=== PATIENT | female | born 1975 ===

== ENCOUNTER 2016-08-10 09:53 | Emergency (ER) | payer BC ==
[~2016-08-10] VITALS: Ht 154.9 cm; Wt 72.0 kg
[~2016-08-10 09:53] MED LIST: ATARAX,VISTARIL25 MG PO; BENADRYL25 MG PO; PREDNISONE20 MG PO; PRENATAL TABLE1 EACH PO
[2016-08-10 11:32] LABS: HEMATOCRIT 34.9 % (36.0-46.0); MCH 26.5 PG (29.0-34.0); MCV 80.4 FL (83-99); PLATELET COUNT 187 K/uL (156-360); RBC DIS.WIDTH-CV 14.2 % (11.8-14.6); RBC DIS.WIDTH-SD 39.8 % (39-53); RED BLOOD COUNT 4.34 M/uL (3.80-5.20); WHITE BLOOD COUNT 6.2 K/uL (4.1-10.2)
[2016-08-10 11:45] LABS: CHLORIDE 106 mEq/L (99-109)
[2016-08-10 11:46] LABS: POTASSIUM 3.8 mEq/L (3.7-5.4); SODIUM 137 mEq/L (136-147)
[2016-08-10 11:47] LABS: GLUCOSE 92 mg/dL (70-99)
[2016-08-10 11:49] LABS: ANION GAP 9 MEQ/L (2-14)
[2016-08-10 11:51] LABS: GFR ESTIMATE (CALCULATED) > 59 mL/min/
[2016-08-10 11:52] LABS: UREA NITROGEN (BUN) 7 mg/dL (9-23)
[2016-08-10 12:00] LABS: TROP-I INTERPRETATION NEGATIVE; TROPONIN-I < 0.01 ng/mL (0.0-0.30)
[2016-08-10] MEDS ORDERED: ASPIRIN81 M2 PO (13:38)
[2016-08-10] MEDS ORDERED: ENOXAPARIN40 MG/0.4 SC (13:38)
[2016-08-10 14:13] LABS: ADD MIUA? YES; BILIRUBIN NEGATIVE; BLOOD NEGATIVE; GLUCOSE (STRIP) NEGATIVE; KETONES NEGATIVE; LEUKOCYTES SMALL; NITRITE NEGATIVE; PROTEIN (STRIP) NEGATIVE; SPECIFIC GRAVITY 1.008 (1.000-1.030); UROBILINOGEN 0.2 MG/DL (0.2-1.0)
[2016-08-10 14:19] LABS: COLOR LT YELLOW ((YELLOW))
[2016-08-10 15:26] LABS: BACTERIA 2+ /HPF; EPITHELIAL CELLS RARE /HPF; MUCUS TRACE /LPF; RED BLOOD CELLS 0-5 /HPF (0-5); UCUL ADDED? NO; UNCLASSIFIED CRYSTALS 2+ /HPF; WHITE BLOOD CELLS 0-5 /HPF (0-5)
[2016-08-10 16:32] VITALS: BP 107/59
== END 2016-08-10 16:33 | disposition home or self-care (01) ==
LOC: EXP 09:53 → EME 09:53 → EXP 16:33
PROVIDERS: Nurse Practitioner Family
DX: O99.89 Other specified diseases and conditions complicating pregnancy, childbirth and the puerperium (principal); R00.2 Palpitations; R55 Syncope and collapse; F43.9 Reaction to severe stress, unspecified; Z3A.30 30 weeks gestation of pregnancy
CPT/HCPCS: 80048; 81003; 84484; 85027; 93005; 99281; 99284; J7030

== ENCOUNTER 2016-09-25 23:30 | Outpatient (CLI) | payer BC ==
[~2016-09-25] VITALS: Ht 154.9 cm; Wt 74.8 kg
[~2016-09-25 23:30] MED LIST changes: +ASPIRIN81 M2 PO; +ENOXAPARIN40 MG/0.4 SC
[2016-09-25 23:41] VITALS: BP 113/62
[2016-09-26 00:58] VITALS: BP 114/53
[2016-09-26 02:06] LABS: ADD MIUA? YES; BILIRUBIN NEGATIVE; BLOOD MODERATE; COLOR YELLOW ((YELLOW)); GLUCOSE (STRIP) NEGATIVE; KETONES NEGATIVE; LEUKOCYTES NEGATIVE; NITRITE NEGATIVE; PROTEIN (STRIP) NEGATIVE; UROBILINOGEN 0.2 MG/DL (0.2-1.0)
[2016-09-26 02:26] LABS: BACTERIA NONE SEEN /HPF; EPITHELIAL CELLS NONE SEEN /HPF; HYALINE CASTS 0-5 /LPF; MUCUS TRACE /LPF; RED BLOOD CELLS 0-5 /HPF (0-5); UCUL ADDED? NO; WHITE BLOOD CELLS 0-5 /HPF (0-5)
[2016-09-26 05:37] VITALS: BP 94/52
== END 2016-09-26 06:10 | disposition home or self-care (01) ==
LOC: LDRP-OP 23:30 → 2WEST 23:31
PROVIDERS: Advanced Practice Midwife
DX: O26.893 Other specified pregnancy related conditions, third trimester (principal); Z3A.35 35 weeks gestation of pregnancy; O99.113 Other diseases of the blood and blood-forming organs and certain disorders involving the immune mechanism complicating pregnancy, third trimester; D68.59 Other primary thrombophilia; O40.3XX0 Polyhydramnios, third trimester, not applicable or unspecified; O09.523 Supervision of elderly multigravida, third trimester
CPT/HCPCS: 59025; 81003; G0378; Q0177

== ENCOUNTER 2016-09-26 19:11 | Inpatient (IN) | payer BC ==
[~2016-09-26] VITALS: Ht 154.9 cm; Wt 73.0 kg
[2016-09-26] VITALS (17 sets, daily range): BP systolic 106–133; BP diastolic 58–88
[2016-09-26 19:40] LABS: EOSINOPHIL (%) 0.8 % (0-5); EOSINOPHIL COUNT 0.1 K/uL (0-0.3); HEMATOCRIT 31.1 % (36.0-46.0); IMMATURE GRANULOCYTE (%) 1.8 % (0.0-0.7); IMMATURE GRANULOCYTE COUNT 0.1 K/uL; LYMPHOCYTE COUNT 1.9 K/uL (1.0-2.8); MCH 25.1 PG (29.0-34.0); MCHC 31.8 G/DL (30.0-36.0); MCV 78.7 FL (83-99); MEAN PLAT.VOLUME 10.8 uM^3 (9.5-12.4); MONOCYTE (%) 9.2 % (3-12); MONOCYTE COUNT 0.7 K/uL (0-0.8); NEUTROPHIL (%) 63.4 % (45-76); NRBC (%) 0.3 /100 WBC (0-0); PLATELET COUNT 179 K/uL (156-360); RBC DIS.WIDTH-CV 14.8 % (11.8-14.6); RBC DIS.WIDTH-SD 42.5 % (39-53); RED BLOOD COUNT 3.95 M/uL (3.80-5.20); WHITE BLOOD COUNT 7.8 K/uL (4.1-10.2)
[2016-09-27] VITALS (11 sets, daily range): BP systolic 85–110; BP diastolic 49–67
[2016-09-27 07:41] LABS: FIBRINOGEN 410 MG/DL (160-450); PTT 25.2 (25-32)
[2016-09-27 08:16] LABS: EOSINOPHIL (%) 0 % (0-5); HEMATOCRIT 23.7 % (36.0-46.0); IMMATURE GRANULOCYTE (%) 0.9 % (0.0-0.7); IMMATURE GRANULOCYTE COUNT 0.1 K/uL; INSTRUMENT ABS NEUTROPHIL CT 8.7 K/uL; LYMPHOCYTE COUNT 1.3 K/uL (1.0-2.8); MCH 24.7 PG (29.0-34.0); MCHC 31.2 G/DL (30.0-36.0); MCV 79.3 FL (83-99); MEAN PLAT.VOLUME 11.1 uM^3 (9.5-12.4); MONOCYTE (%) 9.4 % (3-12); MONOCYTE COUNT 1.1 K/uL (0-0.8); NEUTROPHIL (%) 77.8 % (45-76); NEUTROPHIL COUNT 8.7 K/uL (1.8-6.4); PLATELET COUNT 187 K/uL (156-360); RBC DIS.WIDTH-CV 14.8 % (11.8-14.6); RBC DIS.WIDTH-SD 42.8 % (39-53)
[2016-09-27 08:24] LABS: RED BLOOD COUNT 2.99 M/uL (3.80-5.20); WHITE BLOOD COUNT 11.2 K/uL (4.1-10.2)
[2016-09-28] VITALS (16 sets, daily range): BP systolic 93–113; BP diastolic 52–62
[2016-09-28 07:37] LABS: EOSINOPHIL (%) 0.6 % (0-5); IMMATURE GRANULOCYTE COUNT 0.1 K/uL; INSTRUMENT ABS NEUTROPHIL CT 5.5 K/uL; MONOCYTE (%) 8.4 % (3-12); MONOCYTE COUNT 0.6 K/uL (0-0.8); NEUTROPHIL (%) 76.6 % (45-76); NEUTROPHIL COUNT 5.5 K/uL (1.8-6.4); NRBC (%) 0.3 /100 WBC (0-0)
[2016-09-28 07:46] LABS: HEMATOCRIT 18.7 % (36.0-46.0); MCH 24.6 PG (29.0-34.0); MCHC 30.5 G/DL (30.0-36.0); MCV 80.6 FL (83-99); MEAN PLAT.VOLUME 10.2 uM^3 (9.5-12.4); PLAT.SUFFICIENCY DECREASED; PLATELET COUNT 124 K/uL (156-360); RBC DIS.WIDTH-CV 15.2 % (11.8-14.6); RBC DIS.WIDTH-SD 44.1 % (39-53); RED BLOOD COUNT 2.32 M/uL (3.80-5.20); WHITE BLOOD COUNT 7.2 K/uL (4.1-10.2)
[2016-09-28 18:29] LABS: HEMATOCRIT 26.9 % (36.0-46.0); MCV 82.5 FL (83-99)
[2016-09-29] VITALS (8 sets, daily range): BP systolic 102–128; BP diastolic 51–72
[2016-09-29 18:18] LABS: EOSINOPHIL (%) 1.1 % (0-5); EOSINOPHIL COUNT 0.1 K/uL (0-0.3); HEMATOCRIT 26.8 % (36.0-46.0); IMMATURE GRANULOCYTE (%) 3.3 % (0.0-0.7); IMMATURE GRANULOCYTE COUNT 0.3 K/uL; INSTRUMENT ABS NEUTROPHIL CT 5.4 K/uL; LYMPHOCYTE COUNT 1.4 K/uL (1.0-2.8); MCH 26.5 PG (29.0-34.0); MCHC 32.1 G/DL (30.0-36.0); MCV 82.5 FL (83-99); MEAN PLAT.VOLUME 10.4 uM^3 (9.5-12.4); MONOCYTE (%) 6.4 % (3-12); MONOCYTE COUNT 0.5 K/uL (0-0.8); NEUTROPHIL (%) 70.9 % (45-76); NEUTROPHIL COUNT 5.4 K/uL (1.8-6.4); NRBC (%) 0.4 /100 WBC (0-0); RBC DIS.WIDTH-CV 15.8 % (11.8-14.6); RBC DIS.WIDTH-SD 46.9 % (39-53); WHITE BLOOD COUNT 7.6 K/uL (4.1-10.2)
[2016-09-29 18:24] LABS: PLATELET COUNT 184 K/uL (156-360); RED BLOOD COUNT 3.25 M/uL (3.80-5.20)
[2016-09-30 07:15] VITALS: BP 109/59
[2016-09-30] MEDS ORDERED: IBUPROFEN800 MG PO (09:24)
[2016-09-30] MEDS ORDERED: ENDOCET 5-3251 EACH PO (09:24)
[2016-09-30] MEDS ORDERED: CHROMAGEN,1 CAPSULE PO (09:24)
== END 2016-09-30 15:09 | disposition home or self-care (01) | DRG 765 ==
LOC: LDRP-OP 19:11 → 2WEST 19:12
PROVIDERS: Advanced Practice Midwife; Obstetrics & Gynecology
PROC: 10D00Z1 Extraction of Products of Conception, Low, Open Approach (ICD-10-PCS; principal; 2016-09-27)
PROC: 30233N1 Transfusion of Nonautologous Red Blood Cells into Peripheral Vein, Percutaneous Approach (ICD-10-PCS; 2016-09-29)
DX: O60.14X0 Preterm labor third trimester with preterm delivery third trimester, not applicable or unspecified (principal); O99.42 Diseases of the circulatory system complicating childbirth; D68.59 Other primary thrombophilia; O99.12 Other diseases of the blood and blood-forming organs and certain disorders involving the immune mechanism complicating childbirth; D62 Acute posthemorrhagic anemia; O99.02 Anemia complicating childbirth; O32.2XX0 Maternal care for transverse and oblique lie, not applicable or unspecified; O32.1XX0 Maternal care for breech presentation, not applicable or unspecified; O40.3XX0 Polyhydramnios, third trimester, not applicable or unspecified; R00.0 Tachycardia, unspecified; D50.9 Iron deficiency anemia, unspecified; O09.523 Supervision of elderly multigravida, third trimester; Z3A.35 35 weeks gestation of pregnancy; Z37.0 Single live birth
CPT/HCPCS: 85014; 85018; 85025; 85025 91; 85384; 85610; 85730; 86850; 86900; 86901; 86920; 87480; 87510; 87660; 88307; C1755; J1100; J1200; J1580; J1650; J2270; J2274; J2405; J2765; J3010; J7030; J7050; J7120; P9016